=== PATIENT | female | born 1995 | race Caucasian/White ===

== ENCOUNTER 2023-06-27 13:59 | Emergency (ER) | payer BC, SELFPAY ==
[2023-06-27 14:04] VITALS: BP 134/89; PULSE 67; RESP 16; TEMP 36.3; O2SAT 97; BMI 22.6
--- NOTE | 2023-06-27 14:36 | ED_ITS ---
HPI - Back Pain/Injury General Date Seen: 06/27/23 Chief Complaint: Back Injury/Pain Stated Complaint: Back pain, nausea Time Seen by Provider: 06/27/23 14:01 Source: patient Mode of arrival: ambulatory Limitations: no limitations History of Present Illness HPI Narrative: Patient is a 27-year-old female with a history of degenerative disc disease presenting to the emergency department for nausea, vomiting, low back pain. She states she has long history of back pain had MRI done recently that shows degenerative disc disease she had a previous epidural done with no improvement in her symptoms. She is scheduled to see a spine surgeon this upcoming Saturday but states she has been having worsening back pain over the past 2 days and is unable to get the pain under control. She has been taking muscle relaxers without improvement in her symptoms. The states the pain starts in her low back and radiates down her right leg. While she does have back pain it has been getting much worse over these past 2 days. Not remember doing anything to hurt her back recently. 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 Is also having nausea the started the same time that she thinks is related to the back pain. States she feels well hydrated but does admit to a mild headache. Denies vision changes, numbness, chest pain, shortness of breath, abdominal pain, diarrhea, constipation. She does note she had some right leg weakness yesterday that is abnormal for her but that has since resolved. Related Data Previous Rx's Medication Instructions Recorded ketorolac 10 mg tablet 10 mg PO Q8H #15 tabs 06/27/23 ondansetron 4 mg disintegrating 4 mg PO Q6H #20 tabs 06/27/23 tablet oxycodone 5 mg tablet 5 mg PO Q6H PRN pain #12 tabs 06/27/23 Allergies Allergy/AdvReac Type Severity Reaction Status Date / Time No Known Drug Allergies Allergy Verified 06/27/23 14:08 Review of Systems Status of ROS: Reports: 10 or more systems reviewed and unremarkable except as noted in History and below Exam Narrative: Exam Narrative: Const: Well-nourished, Well-developed, in mild distress Eyes: PERRL, no conjunctival injection, and symmetrical lids HENT: Atraumatic external nose and ears. Moist mucous membranes. Neck: Symmetric, trachea midline, No thyromegaly. CVS: RRR, No murmurs or gallops. Peripheral pulses 2+ and equal in all extremities RESP: Unlabored respiratory effort. Clear to auscultation bilaterally. GI: Nontender/Nondistended, No rebound or guarding. MSK:Extremities w/o deformity, Normal Active ROM, right lower back tenderness Skin: Warm, Dry. No rashes or lesions. Neuro: Normal Muscle tone, No focal neurological deficits. Psych: Awake, Alert, & Oriented x3. Appropriate mood and affect. Const: Vital Signs, click to edit/add: Vital Signs - 24 hr 06/27/23 14:04 Temperature 97.4 F L Pulse Rate [Right Pulse Oximeter] 67 Respiratory Rate 16 Blood Pressure [Ri ght Upper Arm] 134/89 Pulse Oximetry 97 Oxygen Delivery Me thod Room Air Course Vital Signs Vital signs: Initial Vital Signs Temperature 97.4 F L 06/27/23 14:04 Temperature Source Temporal Artery Scan 06/27/23 14:04 Pulse Rate 67 06/27/23 14:04 Pulse Rhythm Regular 06/27/23 14:04 Pulse Strength 3+ Normal 06/27/23 14:04 Respiratory Rate 16 06/27/23 14:04 Blood Pressure 134/89 06/27/23 14:04 Blood Pressure Mean 104 06/27/23 14:04 Blood Pressure Position Sitting 06/27/23 14:04 Pulse Oximetry 97 06/27/23 14:04 Oxygen Delivery Method Room Air 06/27/23 14:04 Vital Signs Temperature 97.4 F L 06/27/23 14:04 Pulse Rate 67 06/27/23 14:04 Respiratory Rate 16 06/27/23 14:04 Blood Pressure 134/89 06/27/23 14:04 Pulse Oximetry 97 06/27/23 14:04 Oxygen Delivery Method Room Air 06/27/23 14:04 Temperature 97.4 F L 06/27/23 14:04 Pulse Rate 67 06/27/23 14:04 Respiratory Rate 16 06/27/23 14:04 Blood Pressure 134/89 06/27/23 14:04 Pulse Oximetry 97 06/27/23 14:04 Oxygen Delivery Method Room Air 06/27/23 14:04 Medications Administered Medications: Discontinued Medications Generic Name Dose Route Start Last Admin Trade Name Freq PRN Reason Stop Dose Admin Ketorolac Tromethamine 30 mg 06/27/23 14:26 06/27/23 14:47 Ketorolac 30 Mg/Ml Inj IM 06/27/23 14:27 30 mg ONCE ONE Administration Ondansetron HCl 4 mg 06/27/23 14:26 06/27/23 14:48 Ondansetron Odt 4 Mg Tab PO 06/27/23 14:27 4 mg ONCE ONE Administration MDM - Back Pain/Injury MDM Narrative Medical decision making narrative: Patient is 27-year-old female presenting to the emergency department for low back pain radiating to her right leg. She is not having any saddle anesthesia, fevers, loss of bowel or bladder control. No red flag symptoms for cauda equina. She has known degenerative disc disease. She has been trying to manage pain at home but has not been successful. Do not believe further imaging is necessary as we already know what is happening there has been no recent trauma. We will try Toradol for pain and Zofran for the nausea. The nausea and headache she thinks is both from her back pain. I do not believe head imaging is neces lorenzo at this time. Since she is having nausea we will just check a CBC and CMP to make sure there is nothing else going on. Lab work returned showing no concerning abnormalities. After medication she was feeling little bit less nauseated and the back pain did improve but it is still not noticeably that she states. Her headache has improved. At this time I do believe she is having quite a bit of active suicidal believe she is a reliable patient's I will give her prescription for Toradol, Zofran and give her prescription for oxycodone. I informed her she will not be able to get further oxycodone prescriptions from our emergency department. She states she understands. Will give her dose before she leaves. Lab Data Labs: Lab Results 06/27/23 Range/Units 14:38 WBC 6.54 (4.50-11.00) K/uL RBC 3.96 L (4.00-5.20) m/uL Hgb 12.7 (12.0-16.0) gm/dL Hct 38.7 (33.0-51.0) % MCV 98 (80-100) fL MCH 32 (26-34) pg MCHC 33 (32-36) gm/dL RDW Coeff of Ernie 12.3 (11.5-15.5) % Plt Count 299 (140-440) K/uL Neut % (Auto) 60.2 (42.0-72.0) % Lymph % (Auto) 29.4 (20-44) % Boundary % (Auto) 5.0 (0.0-11.0) % Eos % (Auto) 4.7 (0.0-7.0) % Baso % (Auto) 0.5 (0.0-3.0) % Neut # (Auto) 3.94 (1.7-7.0) K/uL Lymph # (Auto) 1.92 (0.90-2.90) K/uL Boundary # (Auto) 0.30 (0.00-0.90) K/UL Eos # (Auto) 0.31 (0.00-0.50) K/uL Baso # (Auto) 0.03 (0.00-0.30) K/uL Abs Immat Gran (auto) 0.01 (0.00-0.30) K/uL Imm/Tot Granulo (auto) 0.2 % Sodium 139 (135-149) mmol/L Potassium 3.8 (3.6-5.1) mmol/L Chloride 102 (96-114) mmol/L Carbon Dioxide 32 (20-32) mmol/L Anion Gap 5 L (7-15) mEq/L BUN 15 (5-24) mg/dL Creatinine 0.6 (0.5-1.5) mg/dL Estimated Creat Clear 134.18 Estimated GFR 128 ml/min Glucose 98 (60-115) mg/dL Calcium 9.2 (8.4-10.6) mg/dL Total Bilirubin 0.4 (0.1-1.5) mg/dL AST 29 (12-35) U/L ALT 17 (4-35) U/L Alkaline Phosphatase 39 L (40-150) U/L Total Protein 7.2 (6.0-8.3) g/dL Albumin 4.5 (3.3-5.0) g/dL Discharge Plan Discharge Clinical Impression: Lumbar radiculopathy Patient Disposition: Home, Self-Care Condition: Improved Instructions: Acute Low Back Pain (ED) Additional Instructions: Take Toradol as needed for your back pain. Do not take ibuprofen the same time as they are the same class of drugs. Has not working to control the oxycodone. Use Zofran as needed for nausea. You will unlikely be able to get further prescriptions for oxycodone here in the emergency department. Follow-up with your spine surgeon on Saturday as previously planned. Prescriptions: New ondansetron 4 mg tablet,disintegrating 4 mg PO Q6H Qty: 20 0RF oxycodone 5 mg tablet 5 mg PO Q6H PRN (Reason: pain) Qty: 12 0RF ketorolac 10 mg tablet 10 mg PO Q8H Qty: 15 0RF Rx Instructions: maximum total duration of 5 days from all oral, intranasal, or parenteral formulations Follow Up/Referrals: Clara Coto PA-C [Physician Microfilm Machine Operator] - Stand Alone [facility]: [facility] Info Inst[facility]
[2023-06-27 14:45] LABS: Basophils Absolute Auto 0.03 K/uL (0.00-0.30); Basophils Percent Auto 0.5 % (0.0-3.0); Eosinophils Absolute Auto 0.31 K/uL (0.00-0.50); Eosinophils Percent Auto 4.7 % (0.0-7.0); Hematocrit 38.7 % (33.0-51.0); Hemoglobin* 12.7 gm/dL (12.0-16.0); Immature Granulocytes Abs Auto 0.01 K/uL (0.00-0.30); Immature Granulocytes Pct Auto 0.2 %; Lymphocytes Absolute Auto 1.92 K/uL (0.90-2.90); Lymphocytes Percent Auto 29.4 % (20-44); Mean Corpuscular HGB Conc 33 gm/dL (32-36); Mean Corpuscular Hemoglobin 32 pg (26-34); Mean Corpuscular Volume 98 fL (80-100); Neutrophils Absolute Auto 3.94 K/uL (1.7-7.0); Neutrophils Percent Auto 60.2 % (42.0-72.0); Platelet Count* 299 K/uL (140-440); RDW Coefficient of Variation % 12.3 % (11.5-15.5); Red Blood Count 3.96 m/uL (4.00-5.20); White Blood Count* 6.54 K/uL (4.50-11.00)
[2023-06-27] MEDS: KETOROLAC 30 MG/ML inj IM (14:47)
[2023-06-27] MEDS: ONDANSETRON ODT 4 MG TAB PO (14:48)
[2023-06-27 14:51] LABS: Slide Review Reflex No
[2023-06-27 15:09] LABS: Albumin* 4.5 g/dL (3.3-5.0); Chloride* 102 mmol/L (96-114); Potassium* 3.8 mmol/L (3.6-5.1); Sodium* 139 mmol/L (135-149)
[2023-06-27 15:11] LABS: Creatinine* 0.6 mg/dL (0.5-1.5); Est. Creatinine Clearance* 134.18; Estimated Glomerular Filt Rate 128 ml/min
[2023-06-27 15:12] LABS: Alanine Aminotransferase* 17 U/L (4-35); Alkaline Phosphatase* 39 U/L (40-150); Anion Gap 5 mEq/L (7-15); Aspartate Amino Transferase* 29 U/L (12-35); Bilirubin Total* 0.4 mg/dL (0.1-1.5); Blood Urea Nitrogen* 15 mg/dL (5-24); Calcium* 9.2 mg/dL (8.4-10.6); Carbon Dioxide* 32 mmol/L (20-32); Glucose* 98 mg/dL (60-115); Total Protein* 7.2 g/dL (6.0-8.3)
[2023-06-27] MEDS: OXYCODONE 5 MG TABLET PO (16:02)
== END 2023-06-27 16:06 | disposition home or self-care (01) ==
PROVIDERS: Emergency Provider Student in an Organized Health Care Education/Training Program; PCP Family Medicine
DX: M54.16 Radiculopathy, lumbar region (principal)
CPT/HCPCS: 36415; 80053; 85025; 96372; 99283; A9270; J1885

== ENCOUNTER 2024-07-02 19:55 | Emergency (ER) | payer BC, SELFPAY ==
--- OUTSIDE RECORDS SUMMARY | 2024-07-02 19:57 | XMS_ITS ---
Author Organization [facility] Address [address] [place] [address] [address] [place] [address] Care Team Providers Care Irrigation Service Technician Name Role Phone Kennedy KIRAN, Esdras Primary Care Provider Miguel Fortune Unavailable [phone] Medina Tyler Unavailable Unavailable Danielle Us Unavailable [phone] Encounters Encounter Location Date Provider Diagnosis [facility] [address] [place] [address] 07/01/2023 Danielle bradfordTeachcodie Plan Of Treatment No Information Progress Notes * Cecelia MORENOeDOB:1995 (28 yo F)Acc No.[id number]:07/01/2023 Daily Note Patient: Krista PICKETT Provider: Sahil Gaitan, OTR L :1995 A ge:27 Y S ex:Female Date:07/01/2023 Phone: [facility] Pcp:Esdras Benavides MD Subjective: * Chief Complaints: Objective: Therapeutic Interventions: Assessment: Plan: * Treatment: * Billing Information: * Visit Code: * Procedure Codes: * Electronic signature of Job guzman Us , OTR/L on 07/02/2024 at 07:57 PM CDT Sign off status: Pending * Provider: Sahil Gaitan OTR L Date: 07/01/2023 Generated for Elkini ng/Faxing/eTransmitting on: 07/02/2024 07:57 PM CDT
--- OUTSIDE RECORDS SUMMARY | 2024-07-02 19:57 | XMS_ITS ---
Author Organization [facility] Address [address] [place] [address] [address] [place] [address] Care Team Providers Care Funeral Attendant Name Role Phone Kennedy KIRAN, Esdras Primary Care Provider UnavailMiguel Martinez Unavailable [phone] Mercydarcy Medina Unavailable Unavailable Al Rodríguez Unavailable [phone] REASON FOR VISIT pt forgot Encounters Encounter Location Date Provider Diagnosis [facility] [address] [place] [address] 07/03/2023 Al Rodríguez Low back pain, unspecified M54.50 ; Lumbar spondylosis M47.816 and Pain in right hip M25.551 Assessments Encounter Date Diagnosis (ICD Code) Assessment Notes Treatment Notes Treatment Clinical Notes Section Notes 07/03/2023 Low back pain, unspecified (ICD-10 - M54.50) 07/03/2023 Lumbar spondylosis (ICD-10 - M47.816) 07/03/2023 Pain in right hip (ICD-10 - M25.551) Plan Of Treatment No Information Progress Notes * Cecelia MORENOeDOB:1995 (28 yo F)Acc No.[id number]:07/03/2023 Daily Note Patient: Krista PICKETT Provider: Javier Rodríguez DPT Resource:Michael Lorenz :1995 A ge:27 Y S ex:Female Date:07/03/2023 Phone: Address:[facility] [place] Pcp:Esdras Benavides MD Subjective: * Chief Complaints: * HPI: * Therapy Visit Status: Session Data T dede's Session Date 0 06/17/2023 T herapy Episode Status A ctive T herapy Sessions Completed (#) 4 P T Goal Review Date 0 05/31/2023 O T Goal Review Date 0 05/24/2023 T herapy Visit Subjective: Pt reports an increase in LBP, R hip over the last couple weeks, went to [facility] urgent care a week and a half ago because of their LB and hip pain, they received a medrol dose pack and it helped initially but it did wear off. Today is more stable but is going to [facility] tomorrow for further guidance. Objective: * Physical Examination: L umbar Extension Positioning & Goals: Positioning T DC 2 1 C B 1 97 F emur 4 O ther R ound Rollers P rotocol D isc Radiculopathy: Start at 0-36 Goals L ow Goal Female (60% BW) 8 4 H igh Goal Female (80%BW, Max 150) 1 12 L umbar Extension Exercise Performance: Exercise T orque (ft-lbs) 4 5 E xtension ROM (0) 0 F lexion ROM (72) 3 6 R epetitions 2 5 R ating of Perceived Exertion (0-10) 7 L ast Rep Status M et Exertion Goal, Symptom Limited right LBP-somewhat sharp and burning E xercise Plan 2 x week T orso Rotation Positioning & Goals: Positioning G ate 1 .9 F ootboard 2 B ack Pad B ack Pad 1 inch O ther H ands on shoulder restraints P rotocol D isc History: Start 30-30 Goals L ow Goal Female (30%BW) 4 2 H igh Goal Female (35%BW, Max 60) 4 9 T orso Rotation Exercise Performance: Exercise T orque (ft-lbs) 3 0 R otation Left (48) 3 0 R otation Right (48) 3 0 L eft Repetitions 2 0 R ight Repetitions 2 0 R PE (0-10) 7 L ast Rep Status M et Repetition Goal E xercise Plan 2 x week G lute Extension Isotonic Machine: Exercise W eight 2 0 L eft Repetitions 1 5 R ight Repetitions 1 5 I sotonic Exercise Machine Summary: Billing [phone] (Therapeutic Exercise) Direct 1:1 Time= 35 min , CPT Coding Support:. I solated spinal exercise was performed with direct therapy supervision. Therapeutic exercise is dosed objectively using progressive resistance exercise and graded ROM to ensure tolerance. Isolated exercise provides improvement in neuro-muscular coordination of the stabilizing muscles that often become inhibited as a result of injury or disuse. Isolated exercise yields improvements in strength, ROM, and endurance of the spinal musculature necessary in daily functional activities. Therapeutic Interventions: * Therapeutic Interventions: 1 . * Home Exercise List: Stretches & Release Low Back and Hip Stretching HEP : Trunk Rotation (supine twist), Hamstring (supine with ankle pump), Piriformis (modified supine and seated), Hip Flexor (kneeling). QL stetch (kneeling and seated), segmental pelvic tilt roll ups 2 . * Home Exercise List: Strength & Function Hip & Core Strength HEP : prone glute activation (up on toes, engage glute, lift toes and maintain glute contraction) 3 . E ndurance Training Stationary Bike : (Non-billed) Warm up completed prior to therapy session as instructed 4 . M ovement Therapy Summary Movement Therapy Details : Reviewed:-HS,piriformis stretchesIntroduced:-Bridges-Low abs lvl 1-Clamshells Billing : [id number] (Therapeutic Exercise) Direct 1:1 Time= 20 minutes of HEP development 5 . * NA Squat / Reach Active HEP List: : SQUAT: Bridge (Floor) Lunge/Plank Active HEP List: : LUNGE: Clamshell, PLANK: Lower Ab (1) Assessment: * Therapy Assessment and Plan: 1. T herapy Session Assessment Summary : Pt's persistent hip pain is cause for concern for the pt, they do admit the inconsistent attendance is a co-factor in their perseverant issue, however, does feel more imaging may be merited, hence the Ray[facility] visit soon. In the interim of possible findings, we will continue to educate pt on PNE, as well as build upon their HEP as today was a great indication their body is well deconditioned for their age and comparitively to their personal previous level of fitness. 2. * Therapy Session Plan Plan Details : *Patient Valued Goals/Activities: HH chores, yoga, fall asleep faster, *MD/JOSE Follow Up Plan: 6 weeks, *Incoming Referral Tracking - NOLE/RTcore/glut/lb exercisesEDU: 1,2,3,4, Completed Therapy Interventions: sitting/sleep positioning 3. C o-Signing Status SCRUB TECHNICIAN Supervision : SCRUB TECHNICIAN Off-Site Supervision: The therapy session was supervised in accordance to [place] Board of PT statues and rules 148.706 as an off-site supervised session in which a licensed physical therapist was available by telecommunication * Assessment: 1. L ow back pain, unspecified - M54.50 2 . L umbar spondylosis - M47.816? 3. P ain in right hip - M25.551 Plan: * Treatment: * Billing Information: * Visit Code: * Procedure Codes: * Electronic signature of Al Rodríguez DPT on 07/02/2024 at 07:57 PM CDT Sign off status: Pending * Provider: Javier Rodríguez DPT Date: 0 07/03/2023 Generated for Akua maza/Stacia/Maxx on: 0 07/02/2024 07:57 PM CDT History and Physical Notes * HPI (History of Present Illness) Category Sub-Category Detail Notes Category Not es Therapy Visit Subjective Pt reports an increase in LBP, R hip over the last couple weeks, went to [facility] care a week and a half ago because of their LB and hip pain, they received a medrol dose pack and it helped initially but it did wear off. Today is more stable but is going to [facility] tomorrow for further guidance. *Therapy Visit Status Session Data Today's Se ssion Date: 06/17/2023 Therapy Episode Status: Active Therapy Sessions Completed (#): 4 PT Goal Review Date: 05/31/2023 OT Goal Review Date: 05/24/2023 Physical Examination Category Sub-Category Detail Notes Section Note s Lumbar Extension Exercise Performance Exercise Torque (ft-lbs): 45 Isolated spinal exercise was performed with direct therapy supervision. Therapeutic exercise is dosed objectively using progressive resistance exercise and graded ROM to ensure tolerance. Isolated exercise provides improvement in neuro-muscular coordination of the stabilizing muscles that often become inhibited as a result of injury or disuse. Isolated exercise yields improvements in strength, ROM, and endurance of the spinal musculature necessary in daily functional activities. Extension ROM (0): 0 Flexion ROM (72): 36 Repetitions: 25 Rating of Perceived Exertion (0-10): 7 Last Rep Status: Met Exertio n Goal, Symptom Limited right LBP-somewhat sharp and burning Exercise Plan: 2 x week Lumbar Extension Positioning & Goals Positioning TDC: 21 Isolated spinal exercise was performed with direct therapy supervision. Therapeutic exercise is dosed objectively using progressive resistance exercise and graded ROM to ensure tolerance. Isolated exercise provides improvement in neuro-muscular coordination of the stabilizing muscles that often become inhibited as a result of injury or disuse. Isolated exercise yields improvements in strength, ROM, and endurance of the spinal musculature necessary in daily functional activities. CB: 197 Femur: 4 Other: Round Rollers Protocol: Disc Radiculopathy: Start at 0-36 Goals Low Goal Female (60% BW): 84 High Goal Female (80%BW, Max 150): 112 Isotonic Exercise Machine Summary Billing [id number] (Therapeutic Exercise) Direct 1:1 Time= 35 min , CPT Coding Support: Isolated spinal exercise was performed with direct therapy supervision. Therapeutic exercise is dosed objectively using progressive resistance exercise and graded ROM to ensure tolerance. Isolated exercise provides improvement in neuro-muscular coordination of the stabilizing muscles that often become inhibited as a result of injury or disuse. Isolated exercise yields improvements in strength, ROM, and endurance of the spinal musculature necessary in daily functional activities. Torso Rotation Positioning & Goals Positioning Alderson: 1.9 Isolated spinal exercise was performed with direct therapy supervision. Therapeutic exercise is dosed objectively using progressive resistance exercise and graded ROM to ensure tolerance. Isolated exercise provides improvement in neuro-muscular coordination of the stabilizing muscles that often become inhibited as a result of injury or disuse. Isolated exercise yields improvements in strength, ROM, and endurance of the spinal musculature necessary in daily functional activities. Footboard: 2 Back Pad: Back Pad 1 inch Other: Hands on shoulder re straints Protocol: Disc History: Start 30-30 Goals Low Goal Female (30%BW): 42 High Goal Female (35%BW, Max 60): 49 Torso Rotation Exercise Performance Exercise Torque (ft-lbs): 30 Isolated spi nal exercise was performed with direct therapy supervision. Therapeutic exercise is dosed objectively using progressive resistance exercise and graded ROM to ensure tolerance. Isolated exercise provides improvement in neuro-muscular coordination of the stabilizing muscles that often become inhibited as a result of injury or disuse. Isolated exercise yields improvements in strength, ROM, and endurance of the spinal musculature necessary in daily functional activities. Rotation Left (48): 30 Rotation Right (48): 30 Left Repetitions: 20 Right Repetitions: 20 RPE (0-10): 7 Last Rep Status: Met Repetition Goal Exercise Plan: 2 x week Glute Extension Isotonic Machine Exercise Weight: 20 Isolated spinal exercise was performed with direct therapy supervision. Therapeutic exercise is dosed objectively using progressive resistance exercise and graded ROM to ensure tolerance. Isolated exercise provides improvement in neuro-muscular coordination of the stabilizing muscles that often become inhibited as a result of injury or disuse. Isolated exercise yields improvements in strength, ROM, and endurance of the spinal musculature necessary in daily functional activities. Left Repetitions: 15 Right Repetitions: 15
--- OUTSIDE RECORDS SUMMARY | 2024-07-02 19:57 | XMS_ITS | Data Portability ---
Author Organization [place] [facility], autoContract Address [address] [place] [address] Assessment No assessment recorded. Plan of Treatment Reminders Order Date Submit Date Provider Last Modified By Organization Details Last Modified Time Details Appointments None recorded. Lab HIV (1+2) Ab screen, serum 2019 020 [email or web address] [facility], [address] [facility], [address], [place], [address], 0 11:27:05 vdrl/RPR, serum 2019 020 [email or web address] [facility], [address] [facility], [address], [place], [address], 0 11:27:05 hsv (1+2) igg, serum 2019 020 [facility], [address] [facility], [address], [place], [address], 0 16:45:24 TSH, serum or plasma 2019 020 [facility], [address] [facility], [address], [place], [address], 0 16:45:20 lipid panel, serum 2019 020 [facility], [address] [facility], [address], [place], [address], 0 16:45:24 CMP, serum or plasma 2019 CIARAN [facility], [address], [address], [place], [address], 0 16:45:18 urinalysis, complete 2019 [facility], [address], [address], [place], [address], 0 16:45:25 CBC w/ diff 2019 [facility], [address], [address], [place], [address], 0 16:45:22 pap, IG + CT/NG + HPV mRNA E6/E7 2019 [facility], [address], [place], [address], 0 14:25:57 lh + FSH, serum 2019 [facility], [address], [address], [place], [address], 0 16:55:18 estradiol, serum 2019 [facility], [address], [address], [place], [address], 0 16:55:18 testosteron e, free + total, serum 2019 [facility], [address], [address], [place], [address], 0 16:55:17 lipid panel, serum 2018 019 [facility], [address], [address], [place], [address], 9 12:09:18 CBC w/ auto diff 2018 [facility], [address], [address], [place], [address], 9 12:09:19 CMP, serum or plasma 2018 019 [facility] [employer] [facility], [address], [address], [place], [address], 9 12:09:21 TSH, serum or plasma 2018 [facility] [employer] [facility], [address], [address], [place], [address], 9 12:09:20 Referral psychiatris t referral 2018 [email or web address] 6 [facility], [address], [address], [place], [address], 9 12:11:02 Procedures None recorded. Surgeries None recorded. Imaging None recorded. Medication Orders None recorded. Patient TargetsNo targets recorded. Patient Instructions Encounter Date Encounter Id Patient Instructions Last Modified By Organization Details Last Modified Time 11/27/2019 [id number] adult depression screening* asterious Not available 11/27/2019 16:44:49 depression (wome n only) asterious Not available 11/27/2019 16:44:49 td (tetanus, diphtheria) vaccine: what you need to know asterious Not available 11/27/2019 16:45:24 wellness education asterious Not availab le 11/27/2019 16:44:50 advance directives: care instructions asterious Not available 11/27/2019 16:44:49 diet and exercis e for metabolic syndrome: care instructions asterious Not available 11/27/2019 16:44:50 alcohol use disorders identification test* asterious Not available 11/27/2019 16:44:49 advance directiv e education asterious Not available 11/27/2019 16:44:50 advance directives: care instructions asterious Not available 11/27/2019 16:44:48 sunscreen ingredients information asterious Not available 11/27/2019 16:44:50 Reason for Referral Psychiatrist Referral for Ch ronic anxiety Referring Physician: Feli Reveles, Internal Medicine, Encounter Date: 12/31/2018 Results Created Date Observation Date Name Description Value Unit Range Abnormal Flag Note LastModifiedBy Organization Detail LastModifiedTime 11/27/1912/03/2019 pap, IG + CT/NG + HPV mRNA E6/E7 clinical information: normal FIRST PAP Not Available [facility] [address], [place], [address], 12/03/2019 16:34:35 11/27/1912/03/2019 pap, IG + CT/NG + HPV mRNA E6/E7 LMP: normal ABOUT 8 MONTH S Not Available [facility] [address], [place], [address], 12/03/2019 16:34:35 11/27/1912/03/2019 pap, IG + CT/NG + HPV mRNA E6/E7 prev. Pap: normal None given Not Available [facility] [address], [place], [address], 12/03/2019 16:34:35 11/27/1912/03/2019 pap, IG + CT/NG + HPV mRNA E6/E7 prev. BX: NONE GIVEN normal Not Available [facility] [address], [place], [address], 12/03/2019 16:34:35 11/27/1912/03/2019 pap, IG + CT/NG + HPV mRNA E6/E7 source: normal Cervi x, Endoc ervix Not Available [facility] [address], [place], [address], 12/03/2019 16:34:35 11/27/1912/03/2019 pap, IG + CT/NG + HPV mRNA E6/E7 statement of adequacy: normal Satis facto ry for evalu ation . Endoc ervic al/tr ansfo rmati on zone compo nent absen t. Not Available [facility] [address], [place], [address], 12/03/2019 16:34:35 11/27/1912/03/2019 pap, IG + CT/NG + HPV mRNA E6/E7 interpretati on/result: normal Negat macie for intra epith elial lesio n or manan rajani . Not Available [facility] [address], [place], [address], 12/03/2019 16:34:35 11/27/1912/03/2019 pap, IG + CT/NG + HPV mRNA E6/E7 infection: normal Shift in vagin al alem sugge stive of bacte rial vagin osis. Not Available [facility] [address], [place], [address], 12/03/2019 16:34:35 11/27/1912/03/2019 pap, IG + CT/NG + HPV mRNA E6/E7 comment: normal Tip of colle ction devic e in vial Not Available [facility] [address], [place], [address], 12/03/2019 16:34:35 11/27/1912/03/2019 pap, IG + CT/NG + HPV mRNA E6/E7 cytotechnolo gist: normal LLM, CT( CP) CT scree jamie [place]at [place] [place] [address] [place], [place] [address] Not Available [facility] [address], [place], [address], 12/03/2019 16:34:35 11/27/1912/03/2019 pap, IG + CT/NG + HPV mRNA E6/E7 review cytotechnolo gist: normal JLL, CT( CP) CT scree jamie locat [place]: [facility] [place] [id number] [address] [place], [place] [address] Not Available [facility] [address], [place], [address], 12/03/2019 16:34:35 11/27/19 20 12/03/2019 pap, IG + CT/NG + HPV mRNA E6/E7 comment EXPLA OMER Alva NOTE: The Pap is a scree jamie test for cervi aaron cance r. It is not a diagn ostic test and is subje ct to false negat macie and false posit macie resul ts. It is most relia ble when a satis facto ry sampl e, regul yakov obtai giancarlo, is submi tted with relev ant clini aaron findi ngs and histo ry, and when the Pap resul t is evalu ated along with histo eleazar and curre nt clini aaron infor matio n. Not Available [facility] [address], [place], [address], 12/03/2019 16:34:35 11/27/1912/03/2019 pap, IG + CT/NG + HPV mRNA E6/E7 HPV MRNA E6/E7 NOT DETECT ED not detect ed normal This test was perfo rmed using the APTIM A HPV Assay ([employer] . This assay detec ts E6/E7 viral messe nger RNA (mRNA ) from 14 high- risk HPV types (16,1 8,31, 33,35 ,39,4 5,51, 52,56 ,58,5 9,66, 68). The meng tical perfo rmanc e phan cteri stics of this assay have been deter mined by [facility]. The modif icati ons have not been clear ed or appro aissatou by the FDA. This assay has been valid ated pursu ant to the CLIA regul ation s and is used for clini aaron purpo ses. Not Available [facility] [address], [place], [address], 12/03/2019 16:34:35 11/27/19 20 12/03/2019 pap, IG + CT/NG + HPV mRNA E6/E7 chlamydia trachomatis RNA, tma, urogenital NOT DETECT ED not detect ed normal Not Available [facility] [address], [place], [address], 12/03/2019 16:34:35 11/27/19 20 12/03/2019 pap, IG + CT/NG + HPV mRNA E6/E7 neisseria gonorrhoeae RNA, tma, urogenital NOT DETECT ED not detect ed normal Not Available [facility] [address], [place], [address], 12/03/2019 16:34:35 11/27/19 20 12/03/2019 pap, IG + CT/NG + HPV mRNA E6/E7 comment The meng tical perfo rmanc e phan cteri stics of this assay , when used to test SureP ath(T M) speci mens have been deter mined by [facility]. The modif icati ons have not been clear ed or appro aissatou by the FDA. This assay has been valid ated pursu ant to the CLIA regul ation s and is used for clini aaron purpo ses. For addit ional infor judy lewis e refer to https ://ed ucati on.qu estPurdy Ave. com/f aq/FA Q154 (This link is being provi ded for infor amelia gonzalez/ tiana mendosa l purpo ses only. ) Not Available [facility] [address], [place], [address], 12/03/2019 16:34:35 Result Notes None recorded. Problems Name Problem SNOMED Code Status Onset Date Resolution Date Notes Provider Name and Address Organization Details Recorded Time Irregular periods 65578287 Active 020 GIULIA LA APRN null, [place] [facility] 0 16:45:59 Chronic anxiety 831229340 Active 020 Kamila Jansen APRN null, [place] [facility] 0 15:42:36 Problem Notes None recorded. Procedures Surgical History Date Name Laterality Status Provider Name and Address Organization Details Recorded Time 9 Appendectomy completed [place] [facility] 12/31/2018 11:18:01 Imaging Results None recorded. Procedure Notes None recorded. Medical Equipment None Reported. Allergies No known drug allergies Medications Name Sig Start Date Stop Date Status Note LastModified by Organization Details LastModified Time venlafaxine ER 75 mg capsule,ext ended release 24 hr 11/26 completed Not Available Not Available Not Available fluconazole 150 mg tablet 12/31 completed pnt Not Available Not Available Not Available metronidazo le 500 mg tablet Take 1 tablet every 12 hours by oral route as directed for 5 days. 01/05 completed Not Available Not Available Not Available oxycodone-a cetaminophe n 5 mg-325 mg tablet 12/31 completed pnt Not Available Not Available Not Available lorazepam 0.5 mg tablet take 1 tablet every day 01/05 completed Not Available Not Available Not Available risperidone 1 mg tablet Take 0.5 tablets twice a day by oral route. active Not Available Not Available No t Available Microgestin 1/20 (21) 1 mg-20 mcg tablet 12/31 completed pnt Not Available Not Available Not Available Vyvanse 30 mg capsule 12/31 completed pnt Not Available Not Available Not Available Vitals Date Recorded Heart rate Oxygen saturation Oxygen saturation in Arterial blood by Pulse oximetry Respiratory rate Body height Body mass index (BMI) Body weight Systolic blood pressure Diastolic blood pressure Provider Name and Address Organization Details Last Updated DateTime 9 65 /min 97 % 97 % 16 /min 167.64 cm 21.1 kg/m2 66688.6 g 114 mm[Hg] 78 mm[Hg] [place] [facility] 9 11:26:59 Date Recorded Body height Body mass index (BMI) Body weight Heart rate Oxygen saturation Oxygen saturation in Arterial blood by Pulse oximetry Respiratory rate Systolic blood pressure Diastolic blood pressure Provider Name and Address Organization Details Last Updated DateTime 0 167.64 cm 23.1 kg/m2 38991.7 1 g 88 /min 95 % 95 % 16 /min 117 mm[Hg] 79 mm[Hg] Jana [place] [facility] 0 16:14:35 Social History Question Answer Notes LastModified by Organization Details LastModified Time Tobacco Smoking Status Never Smoker No change 11/27/2019 Not Available [facility] 01/05/2020 03:32:18 Accident Related Injury No Information not available 12/31/2018 What Is Your Level Of Alcohol Consumption? Moderate No Change 11/27/19 [id number] Information not available 01/05/2020 Are You Blind Or Do You Have Difficulty Seeing? No [id number] Information not available 01/05/2020 Is Blood Transfusion Acceptable In An Emergency? Yes [id number] Information not available 01/05/2020 Are You Or Have You Been Involved With Bullying? No [id number] Information not available 01/05/2020 What Is Your Level Of Caffeine Consumption? Occasional [id number] Information not available 01/05/2020 Are You Currently Employed? Yes [id number] Information not available 01/05/2020 Are You Deaf Or Do You Have Serious Difficulty Hearing? No [id number] Information not available 01/05/2020 What Type Of Diet Are You Following? REGULAR [id number] Information not available 01/05/2020 Do You Have A Directive To Physicians? No [id number] Information not available 01/05/2020 Which Illicit Or Recreational Drugs Have You Used? Denies [id number] Information not available 01/05/2020 Do You Or Have You Ever Used E-cigarettes Or Vape? 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 No Information not available 12/31/2018 How Many Days In The Past Year Have You Had A Heavy Drinking Consumption (4+ Female, 5+ Male)? 0 Information not available 12/31/2018 Which Of Your Hands Is Dominant? Right [id number] Information not available 01/05/2020 Hard Of Hearing Or Deaf In One Or Both Ears? No Information not available 12/31/2018 Headaches I Have Moderate Headaches Which Come Infrequently Information not available 12/31/2018 High Blood Pressure No Information not available 12/31/2018 High Cholesterol No Information not available 12/31/2018 Single Or Multi-level Home/work? Single Level Home Information not available 12/31/2018 Legally Blind In One Or Both Eyes? No Information not available 12/31/2018 Are You Following A Low Salt Diet? No [id number] Information not available 01/05/2020 Marital Status Single Informatio n not available 12/31/2018 Do You Have A Medical Power Of Director Of Financial Reporting? No [id number] Information not available 01/05/2020 How Many Children Do You Have? 0 [id number] Information not available 01/05/2020 Do You Have An Out Of Hospital DNR? No [id number] Information not available 01/05/2020 Performs Monthly Self-breast Exam? No Information not available 12/31/2018 Do You Use Protection During Sex? No [id number] Information not available 01/05/2020 Difficulty Reading? No Information not available 12/31/2018 What Is Your Relationship Status? Single [id number] Information not available 01/05/2020 Do You Use Your Seat Belt Or Car Seat Routinely? Yes [id number] Information not available 01/05/2020 Seat Belts Used Routinely Yes Information not available 12/31/2018 Are You Sexually Active? Yes [id number] Information not available 01/05/2020 Do You Or Have You Ever Used Smokeless Tobacco? Never Used Smokeless Tobacco [id number] Information not available 01/05/2020 How Much Tobacco Do You Smoke? No [id number] Information not available 01/05/2020 General Stress Level High Information not available 12/31/2018 Do You Use Sunscreen Routinely? No [id number] Information not available 01/05/2020 Sex: Female Functional Status Question Answer Note LastModified by Organizat ion Details LastModified Time Do you have difficulty walking or climbing stairs? No [id number] Information not available 01/05/2020 Difficulty driving at night? No Information no t available 12/31/2018 Do you have difficulty doing errands alone? No [id number] Information not available 01/05/2020 Are you able to care for yourself? Yes [id number] Information not available 01/05/2020 Do you have difficulty dressing or bathing? No [id number] Information not available 01/05/2020 What is your exercise level? Occasional [id number] Information not available 01/05/2020 Mental Status Question Answer Note LastModified by Organization D etails LastModified Time Do you have difficulty concentrating, remembering or making decisions? Yes ADHD [id number] Information no t available 01/05/2020 Family History Nothing Reported. Medical History Condition Response Kidney Stones N Breast Cancer N Rheumatoid arthritis N Erectile Dysfunction N Bone Fracture N Colon cancer N Depression Y COPD N Lung Disease N Sleep Problems N Heart Murnur N Anxiety Disorder Y Muscle, Joint, or Bone Problems N Vision or Eye Problems N Arthritis N Diabetes Mellitus Type 2 N Cancer N Oxygen Dependent N Overactive Bladder N Stroke N Prostate cancer N ADHD Y Hormone Replacement Therpay N Bladder or Kidney Problems N High Cholesterol N Liver Disease N Headaches N Alcohol dependence N Diabetes Mellitus Type 1 N Ear or Hearing Problems N Thyroid Problems N GI Problems N Skin Problems N Anemia N Hepatitis C N Seizures/Epilepsy N AIDS/HIV N Congestive Heart Failure (CHF) N Asthma N Hepatitis B N Reflux/GERD N Heart Disease N Memory Loss N Hypertension N Gynecological History Statement/Question Response Date of Dexa Abnormal Pap N Date of Last Colonoscopy Date of Last Mammogram Flow Moderate Date of LMP 12/21/2018 Sexually Active? Y On BCP's at Conception? N Menses Monthly N HPV Vaccine Y Date of Last Pap Smear Age at Menarche 15 Current Control Method None LMP Approximate Hormone Replacement Therapy N Obstetrics History GPAL:G 0 P 0 0 0 0 Immunizations Vaccine Type Date Status Note Provider Name and Address Organization Details Recorded Time Tdap 0 cancelled patient objection GIULIA LA APR N null, [place] [facility] 11/27/2019 16:45:24 Influenza, high-dose, trivalent, PF 0 cancelled patient objection GIULIA LAAPR N null, [place] [facility] 11/27/2019 19:36:52 Past Encounters Encounter ID Performer Location Encounter Start Date Encounter Closed Date Diagnosis/Indication Diagnosis SNOMED-CT Code Diagnosis ICD10 Code Diagnosis Note [id number] FELI REVELES M.D. MAIN OFFICE [id number] [facility] [address] [place] [address] 12/31/2018 10:48:15 12/31/2018 12:11:02 Chronic anxiety 676416965 F41.9 concerns that she many be bipolar and jose e thi sis the reason Hyperlipid emia screening 122067283 Z13.220 [id number] FELI REVELES M.D. MAIN OFFICE [address] [facility] [address] [place] [address] 11/27/2019 15:43:24 11/27/2019 16:58:51 Adult health examination 714142611 Z00.00 Depression screening 171 087836 Z13.89 goes to [facility] Alcohol co nsumption screening 491735583 Z13.89 3-4 drinks per week Counseling 392860329 Z71 .9 Z71.82 Exercises education, guidance, and counseling 154075668 Z71.89 High risk sexual behavior 933540844 Z72.51 Screening for malignant neoplasm of cervix 482775888 Z12.4 Administra tion of diphtheria, pertussis, and tetanus vaccine 998706966 Z23 Irregular periods 394011 07 N92.6 Immunization refused 275 955558 Z53.20 REFUSE FLU SHOT for the current immunizati on period as specified by the CDC [id number] FELI REVELES M.D. MAIN OFFICE [id number] [facility], [address] [address] 01/06/2020 15:16:42 01/06/2020 15:48:39 Chronic anxiety 487265220 F41.9 Stable. No change. Health Concerns Section Related Observation LastModified by Organization Detai ls LastModified Time None Recorded Concern Status LastModified by Organization Details LastModified Time None Recorded Advance Directives Directive None Recorded Payers Encounter Date Sequence Insurance Name Policy Number Policy Strickland Covered Member ID Strickland Member ID Guarantor Name 12/31/2018 1 [employer] (POS) [id number] Isiah Menaehl [id number] Krista Josh 11/27/2019 1 [employer] (POS) [id number] Isiah Harperl [id number] Krista Josh 01/06/2020 1 [employer] (POS) [id number] Isiah Lara Josh [id number] Krista Josh Notes Date Note Type Note Provider Name and Address Organization Details Recorded Time 9 text/html Anxiety/DepressionReport ed bypatient.Severity:earenstine s suicidal ideations; able to maintain relationships; does not interfere with activities of daily living Associated Symptoms:denies homicidal ideations; no significant weight gain; no significant weight loss; no visual/auditory hallucinations; no delusions; no shortness of breath; mood good; no anxiety; no crying spells; no panic; no isolation; sleeping well; appetite good; energy good; no apathy; maintaining functionalityNotes:it is affecting her relationship wit others , she stopped lorazepam last february she states she has treid many many other mediatons and they do not work Patient is here to establish care Anxiety since high school took lorazepam in the past which helped. Currently not taking anything Asking for a letter for MANDY DOG. Has form in her form (unable to scan) FELI REVELES M.D. [id number] [facility],[address], [address] 01/13/2019 10:39:21 0 text/html Yearly Physical ExaminationReported bypatient.Diet and Nutrition:healthy diet Fracture Risk:no history of fractures; no recent explained fracture; no sudden unexplained fractures; no previous musculoskeletal injuries Physical Activity:exercises on a regular basis; recent increase in physical activity; good physical condition Depression Risk:never feels sad, empty, or tearful; no loss of interest in activities; no significant changes in weight; no sleep disturbances or insomnia; no agitation; no loss of energy; no feelings of worthlessness or guilt; no thoughts of suicide; no history of depression; no history of mood disorders Orientation:no disorientation to time; no disorientation to date; no disorientation to place Concentration and Memory:no decreased concentrating ability; no memory lapses or loss; does not forget words Speech/Motor difficulties:no speech difficulties; no difficulty expressing formulated concepts; no difficulty with fine manipulative tasks; no difficulty writing/copying; no slowed reaction time; does not knock things over when trying to pick them up Hearing:no loss of hearing Vision:no vision problems Activities of Daily Living:able to bathe with limited or no assistance; able to contol urination and bowels; able to dress with limited or no assistance; able to feed self with limited or no assistance; able to get out of chair or bed with limited or no assistance; able to groom with limited or no assistance; able to toilet with limited or no assistance Instrumental Activities of Daily Living:able to do house work with limited or no assistance; able to grocery shop with limited or no assistance; able to manage medications with limited or no assistance; able to manage money with limited or no assistance; able to prepare meals with limited or no assistance; able to use the phone with limited or no assistance Falls Risk Assessment:no frequent falls while walking; no fall in the past year; no fall since last visit; no dizziness/vertigo Home Safety:no unsafe di hazzards; no unsafe stairs; no unsafe gas appliances; working smoke/CO detectors; wears protective head gear for biking/high velocity; use of seatbelts; practicing 'safer sex'; no vision or hearing loss while driving; no fire arms; has hand bars in the bathroom/shower; good lighting in the homeIrregular PeriodsReported bypatient.Associated Symptoms:no fatigue; no irritability; good quality of life She is here for a physical with a pap smear (NEVER HAD ONE) SHE NEEDS TO SEE [employer]BI[employer] INSURANCE CLAIM EXAMINER TO R/O PCOS - SHE HAS NOT HAD A CYCLE IN 8 MONTHS [place]FR[place]A [place] [facility] 11/27/2019 19:37:12 0 text/html Anxiety/DepressionReport ed bypatient.Severity:denie s suicidal ideations; able to maintain relationships; does not interfere with activities of daily living Associated Symptoms:denies homicidal ideations; no significant weight gain; no significant weight loss; no visual/auditory hallucinations; no delusions; no shortness of breath; mood good; no anxiety; no crying spells; no panic; no isolation; sleeping well; appetite good; energy good; no apathy; maintaining functionality Patient is here to review her PAP results. Patient did not get her labs done. ALFREDA [place] - The Listening Doctor 01/06/2020 15:47:35 OBGyn Episode No OBEpisode recorded.
--- OUTSIDE RECORDS SUMMARY | 2024-07-02 19:57 | XMS_ITS | Patient Health Record ---
Author Organization [facility] Address [address] [place] [address] [address] [place] [address] Care Team Providers Care Relay Assembler Name Role Phone Esdras Benavides MD Primary Care Provider UnavailMiguel Martinez Unavailable [phone] Medina Tyler Unavailable Unavailable Al Rodríguez Unavailable [phone] Allergies No Known Allergies Reason For Referral No Information Medications Medication SIG (Take, Route, Frequency, Duration) Notes Start Date End Date Status Meloxicam 15 MG 1 tablet Orally Once a day Active Cyclobenzaprine HCl 10 MG 1 tablet at be dtime as needed Orally Once a day Active Social History Tobacco Use: Social History Observation Description Date Details (start date - stop date) Never Smoker NA - NA Tobacco Use/Smoking: Question Answer Notes Are you a nonsmoker Alcohol Screen Question Answer Notes Did you have a drink contain ing alcohol in the past year? Yes How often did you have a dri nk containing alcohol in the past year? 2 to 4 times a month (2 points) Points 2 Interpretation Negative Problems Problem Type SNOMED Code ICD Code Onset Dates Problem Status W/U Status Risk Notes Problem Right hip pain (906338487868456 ) Pain in right hip (M25.551) Active confirmed Problem Low back pain (610670958) Low back pain, unspecified (M54.50) Active confirmed Problem Lumbar spondylosis (424717367) Lumbar spondylosis (M47.816) Active confirmed Problem Lumbar spinal stenosis (78583892) Lumbar stenosis (M48.061) Active confirmed Plan Of Treatment No Information Insurance Providers Payer Name Payer Address Payer Phone Subscriber Number Group Number Insured Name Patient Relationship to Insured Coverage Start Date Coverage End Date BCBS Out of State [address] [address] [place] [address] [id number] Krista Torres Self - patient is the insured Medical (General) History Medical History History ICD Code Anxiety Arthritis Bipolar Depression Headaches Surgical History Surgery Date(Month/Year) appendectomy 2018
--- OUTSIDE RECORDS SUMMARY | 2024-07-02 19:57 | XMS_ITS | Clinical Summary ---
Author Organization [facility] Address [address] [place] [address] Care Team Providers Care Fence Setter Name Role Phone Mattie Leblacn MD Primary Care Provider Allergies No known active allergies Medications norgestimate-ethi nyl estradioL (ORTHO TRI-CYCLEN) 0.18/0.215/0.25 mg-35 mcg (28) tablet Take 1 Tablet by mouth once daily. 01/04/20 24 Active escitalopram oxalate (LEXAPRO) 20 mg tabletIndications :Generalized anxiety disorder Take 1 Tablet (20 mg) by mouth once daily. 30 Tablet 3 05/01/19 25 Active celecoxib (CELEBREX) 200 mg capsuleIndication s:Annular tear of lumbar disc Take 1 Capsule (200 mg) by mouth two times daily with meals. 60 Capsule 2 05/07/19 25 Active escitalopram oxalate 10 mg tabletIndications :Generalized anxiety disorder with panic attacks Take one tab every morning together with 20 mg dose for total daily dose of 30mg 30 Tablet 3 06/11/19 25 Active clonazePAM 0.5 mg tabletIndications :Panic attacks Take 0.5 Tablets (0.25 mg) by mouth at bedtime. 6 Tablet 06/26/19 25 Active Claravis 40 mg capsule Take 40 mg by mouth two times daily. 12/18/19 24 025 Discontin ued(*Cesilai ent states no longer taking) LORazepam (ATIVAN) 0.5 mg tabIndications:Pa fabienne attack as reaction to stress Take 1 Tablet (0.5 mg) by mouth every 6 hours if needed for Anxiety. 10 Tablet 05/01/19 25 025 Discontin ued(Reord er (E-cancel not sent)) gabapentin (NEURONTIN) 300 mg capsuleIndication s:Lumbar radiculopathy Take 1 Capsule (300 mg) by mouth at bedtime. 30 Capsule 3 05/07/19 25 025 Discontin ued(*Medi cation adjustmen t) gabapentin 100 mg capsuleIndication s:Generalized anxiety disorder with panic attacks one cap at bedtime for 3 days, then one cap two times daily for 3 days, then one cap three times daily thereafter 10 Capsule 06/11/19 25 025 Discontin ued(*Shar rgic/Adve rse Rxn/Side Effects) LORazepam 0.5 mg tabIndications:Pa fabienne attack as reaction to stress Take 1 Tablet (0.5 mg) by mouth every 6 hours if needed for Anxiety. 10 Tablet 06/11/19 25 025 Discontin ued(*Medi cation adjustmen t) Active Problems Problem Noted Date Diagnosed Date Depression, recurrent 09/10/2020 Varicella without mention of complication 2010 Esophageal reflux 10/06/2009 OM, ACUTE SUPPURATIVE NOS 05/29/2000 Encounters Date Type Department Care Team Description 06/26/2024 Telephone [facility] [address] [place] [address] Mattie Leblanc MD Lab (EKG request) 06/25/2024 2:45 PM CDT Telemedicine [facility] [address] [facility] [address] [place] [address] Jeanie Penn MD Telehealth (patient is in [place]); Follow Up 06/23/2024 Telephone [facility] [address] [facility] [place] [address] Zoran Underwood MD Prior Authorization (AMB EPIDURAL STEROID INJECTION - PLEASE COMPLETE/SIGN 06/18/2024 PROGRESS NOTE) 06/19/2024 Telephone [facility] [address] [facility] [place] [address] Zoran Underwood MD requests a call back (reschedule epidural) 06/18/2024 11:20 AM CDT Office Visit [facility] [address] [facility] [place] [address] Zoran Underwood MD Musculoskeletal Problem (Follow up back pain ) 06/18/2024 Travel 06/10/2024 1:45 PM CDT Telemedicine [facility] [address] [address] Jeanie Penn MD Telehealth (patient is in [place]); Follow Up 05/21/2024 10:15 AM CDT Orders Only [facility] [address] [place] [address] Lab 05/21/2024 Travel 05/20/2024 3:45 PM CDT Telemedicine [address] [address] Jeanie Penn MD Telehealth (patient is in [place]); Follow Up 05/18/2024 Telephone [facility] [address] [place] [address] Mattie Leblanc MD Lab (tuberculosis) 05/06/2024 2:40 PM DIRECTOR OF MATERIALS MANAGEMENT Office Visit [facility] [address] [place] [address] Zoran Underwood MD Musculoskeletal Problem (Consult back pain per primary physician Dr. Leblanc ) 05/05/2024 Travel 05/01/2024 1:15 PM DIRECTOR OF MATERIALS MANAGEMENT Telemedicine [facility] [address] [place] [address] Jeanie Penn MD Telehealth; Follow Up; Medication Management 04/30/2024 Travel 04/06/2024 8:15 AM DIRECTOR OF MATERIALS MANAGEMENT Telemedicine [facility] [address] [address] Jeanie Penn MD Telehealth (patient is in [place]); Follow Up from Last 3 Months Immunizations Immunization Administration Dates Next Due DTaP 11/11/2002, 0,05/03/1998,03/08,1997 HIB PRP-T (ActHIB,Hiberix) 11/08/1998,,03/08/1998,12/30 HIB-HepB (Comvax) 11/08/1998 HPV 9 (Gardasil 9) 06/18/2017,12/20/2015 Hepatitis A (Adult) 06/18/2017,12/20/2015 Hepatitis B (Peds) 11/08/1998,03/08/1998, 998 Hib Conjugate, Unspecified 05/03/1998,03/08/1998 ,1997 Inactivated Polio Vaccine 11/11/2002,09/1998,03/08/1998,12/30 Influenza A (H1N1), Inactivated 03/15/2009 Influenza, IIV4 12/20/2015 MENINGOCOCCAL VACCINE 2 VIAL 2MO-55YO (MENVEO) 12/20/2015,11/03/2010 MMR 11/11/2002,11/08/1998 Meningococcal Vaccine (Menactra) 12/20/2015,04/2010 Meningococcal Vaccine (Menomune) 11/03/2010 Tdap 11/03/2010 Varicella Vaccine 05/01/2011,11/08/1998 Family History Medical History Relation Name Comments Good Health Brother Good Health Father Pulmonary embolism Maternal Aunt suddent at 45 Hypertension Maternal Grandfather No Known Problems Maternal Grandmother Good Health Mother No Known Problems Paternal Grandfather Cancer Paternal Grandmother Heart Disease Paternal Grandmother Pulmonary embolism Paternal Grandmother Stroke Paternal Grandmother Relation Name Status Comments Brother Alive Father Alive Maternal Aunt Maternal Grandfather Alive Maternal Grandmother Alive Mother Alive Paternal Grandfather Alive Paternal Grandmother Social History Tobacco Use Types Packs/Day Years Used Date Smoking Tobacco: Never Smokeless Tobacco: Never Tobacco Cessation:Counseling Given: Yes Comments:non smoking home Alcohol Use Standard Drinks/Week Comments Yes 7 (1 standard drink = 0.6 oz pur e alcohol) PHQ-2 Answer Date Recorded PHQ-2 TOTAL SCORE 3 06/25/2024 Social Connections Answer Date Recorded Do you often feel lonely or isolated from those around you? 0 01/15/2024 Financial Resource Strain Answer Date R ecorded Difficulty of Paying Living Expenses 3 01/15/2024 Difficulty of Paying Living Expenses Not on file 01/15/2024 Food Insecurity Answer Date Recorded Do you worry your food will run out before you are able to buy more? 1 01/15/2024 Transportation Needs Answer Date Record ed Does lack of transportation keep you from medica l appointments? 1 01/15/2024 Does lack of transportation keep you from work, meetings or getting things that you need? 1 01/15/2024 Housing Stability Answer Date Recorded What is your housing situation today? 1 01/15/2024 Utilities Answer Date Recorded Do you have trouble paying f or utilities (for example, heat, electricity, water, phone)? 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 Not on file Not on file Obstetrics History Last Filed Vital Signs Vital Sign Reading Time Taken Comments Blood Pressure 106/73 06/18/2024 11:41 AM CDT Pulse 72 06/18/2024 11:41 AM CDT Temperature 36.6 C (97.9 F) 06/18/2024 11:41 AM CDT Respiratory Rate 14 11/12/2022 2:26 PM CDT Oxygen Saturation 95% 06/18/2024 11:41 AM CDT Inhaled Oxygen Concentration - - Weight 66 kg (145 lb 9.6 oz) 02/21/2024 10:34 AM DIRECTOR OF MATERIALS MANAGEMENT Height 168.9 cm (5' 6.5) 09/07/2020 2:45 PM CDT Body Mass Index 23.15 09/07/2020 2:45 PM CDT Plan of Treatment Upcoming Encounters Date Type Department Care Team (Late st Contact Info) Description 07/07/2024 7:40 AM CDT Office Visit [facility] [address] [place] [address] Zoran Underwood MD [address] [place] [address] 07/10/2024 8:15 AM CDT Office Visit [facility] [address] [place] [address] Mattie Leblanc MD [address] [place] [address] 07/10/2024 2:00 PM CDT Office Visit [facility] [address] [place] [address] Iris Martinez, CNM [address] [facility] [address] [place] [address] 08/28/2024 8:40 AM CDT Office Visit [facility] [address] [place] [address] Zroan Underwood MD [address] [place] [address] Health Maintenance Due Date Last Done Comments Hepatitis C screening for age 18-79 11/02/2015 HPV series for age 9-26 (3 - 3-dose series) 09/10/2017 06/18/2017, 12/20/2015 Tetanus booster 11/03/2020 11/03/2010 BMI (ht and wt on same day) for age 18+ 09/07/2021 09/07/2020, 04/18/2020 Pap test for age 21-65 09/08/2023 09/07/2020 COVID-19 vaccine series ( season) 2023 Influenza Vaccine (Season Ended) 2024 12/20/2015 Depression screening for age 12+ 06/26/2025 06/26/2024, 06/25/2024, 06/23/2024, Additional history exists Tdap Completed 11/03/2010 HIV for age 15-65 Completed 09/07/2020 Pneumococcal series for age 6-49 Aged Out No longer eligible based on patient's age to complete this topic Procedures Procedure Name Priority Date/Time Associated Diagnosis Comments QUANTIFERON -TB GOLD PLUS 1 TUBE ([facility]) Routine 05/21/2024 10:15 AM CDT Tuberculosis screening ANTI HIV 1/2 Routine 09/07/2020 3:45 PM CDT Possible exposure to STD CHOCOLATE REFINING ROLLER THIN PREP PAP SCREEN IMAGED Routine 09/07/2020 3:25 PM CDT Pap smear for cervical cancer screening from Last 3 Months or Most Recently Relevant to Health Maintenance Results * QUANTIFERON??-TB GOLD PLUS 1 TUBE ([facility]) (05/21/2024 10:15 AM CDT) QUANTIFERON(R)-T B GOLD PLUS, 1 TUBE NEGATIVE NEGATIVE [employer] Comment: Negative test result. M. tuberculosis complex infection unlikely. NIL 0.01 IU/mL [facility] MITOGEN-NIL 7.15 IU/mL [facility] TB1-NIL 0.01 IU/mL [facility] TB2-NIL 0.01 IU/mL [employer] Comment: The Nil tube value reflects the background interferon gamma immune response of the patient's blood sample. This value has been subtracted from the patient's displayed TB and Mitogen results. Lower than expected results with the Mitogen tube prevent false-negative Quantiferon readings by detecting a patient with a potential immune suppressive condition and/or suboptimal pre-analytical specimen handling. The TB1 Antigen tube is coated with the M. tuberculosis-specific antigens designed to elicit responses from TB antigen primed CD4+ helper T-lymphocytes. The TB2 Antigen tube is coated with the M. tuberculosis-specific antigens designed to elicit responses from TB antigen primed CD4+ helper and CD8+ cytotoxic T-lymphocytes. For additional information, please refer to https://education.[employer]/faq/QRD216 (This link is being provided for informational/ educational purposes only.) Blood BLOOD SPECIMEN / Unknown 05/21/2024 10:15 AM CDT 05/21/2024 10:19 AM CDT us Mattie Leblanc MD SEND OUTS Final Resul t [facility] [employer] [facility] [address] [place] [address], [facility] [address] [place] [address] * ANTI HIV 1/2 (09/07/2020 3:45 PM CDT) HIV-1/HIV-2 ANTIBODY Non-Reacti ve Non-Reacti ve 09/08/2020 5:41 PM CDT [facility] Comment:HIV-1 p24 and HIV-1/ HIV-2 Ab not detected. Blood BLOOD SPECIMEN / Unknown Venipuncture / Unknown 09/07/2020 3:45 PM CDT 09/07/2020 3:48 PM CDT Doc [facility] SEND OUTS Final Resul t [facility] [address] [place] [address], [place] * CHOCOLATE REFINING ROLLER THIN PREP PAP SCREEN IMAGED (09/07/2020 3:25 PM CDT) Case Report Gynecologic Cytology Report Case: [id number] Authorizing Provider: Doc Mitchell PA Collected: 09/07/2020 1525 Ordering Location: [facility] Received: 09/07/2020 1555 Clinic First Screen: Fay Cruz Specimen: CHOCOLATE REFINING ROLLER ThinPrep Vial Screening, Cervical 09/16/2020 6:59 PM CDT [facility] INTERPRETATION/ RESULT NEGATIVE FOR INTRAEPITHELIAL LESION OR MALIGNANCY (NIL) (none) 09/16/2020 6:59 PM CDT [facility] at 1859 CDT ORGANISM(S) Shift in alem suggestive of bacterial vaginosis 09/16/2020 6:59 PM CDT [facility] SPECIMEN ADEQUACY Satisfactory for evaluation No endocervical component seen 09/16/2020 6:59 PM CDT [facility] HPV REQUEST HPV if ASCUS 09/16/2020 6:59 PM CDT [facility] Date of LMP 08/20/20 09/16/2020 6:59 PM CDT [facility] Last Pap Date 201909/16/2020 6:59 PM CDT [facility] Last Pap Result First Pap/Unknown 6:59 PM CDT [facility] Abnormal Pap or Creola Bx in last 5 years No 09/16/2020 6:59 PM CDT [facility] Menstrual Status Irregular Periods 09/16/2020 6:59 PM CDT [facility] Creola Bx Done Today No 09/16/2020 6:59 PM CDT [facility] Additional Information None given 09/16/2020 6:59 PM CDT [facility] Comment: Cytology is screened at [facility] - [address], [place] [address] and [facility] - [address] [facility] [place] [address] and [facility] - [address] [place] [address] Interpreted at [facility] - [address], [place] [address] Automated Review Successful 09/16/2020 6:59 PM CDT [facility] Comment:Specimen processed s uccessfully by automated data operations leader device, ThinPrep Imaging System, [employer] Note The pap test is a screening technique, not a diagnostic procedure. It is used primarily to screen for squamous cancers and precursor lesions. Published studies have shown that it is subject to both false negative and false positive results. The pap test should not be used as the sole means to diagnose or exclude pre-malignant and malignant lesions. 09/16/2020 6:59 PM CDT [facility] Other (Cervical) Non-Blood / Unknown 09/07/2020 3:25 PM CDT 09/07/2020 3:55 PM CDT us Doc [facility] PATHOLOGY/CYTOLOGY Final Re sult [facility] [address] [place] [address], [place] from Last 3 Months or Most Recently Relevant to Health Maintenance Insurance [employer] [facility] Care Teams Fence Setter Relationship Specialty Start Date End Date Mattie [place]blanc [place] [address] PCP - General Family Practice 02/21/24
[2024-07-02 19:58] VITALS: BP 138/95; PULSE 61; RESP 16; TEMP 36.6; O2SAT 100; BMI 22.6
--- OUTSIDE RECORDS SUMMARY | 2024-07-02 19:58 | XMS_ITS ---
Author Organization [facility] Address [address] [place] [address] [address] [place] [address] Care Team Providers Care Data Analysis Assistant Name Role Phone Kennedy KIRAN, Esdras Primary Care Provider Miguel Fortune Unavailable [phone] Medina Tyler Unavailable Unavailable Al Rodríguez Unavailable [phone] Encounters Encounter Location Date Provider Diagnosis [facility] [address] [place] [address] 06/26/2023 Al Rodríguez Plan Of Treatment No Information Progress Notes * Cecelia MORENOeDOB:1995 (28 yo F)Acc No.[id number]:06/26/2023 Daily Note Patient: Krista PICKETT Provider: Javier Rodríguez DPT Resource:Michael Lorenz :1995 A ge:27 Y S ex:Female Date:06/26/2023 Phone: [facility] Pcp:Esdras Benavides MD Subjective: * Chief Complaints: Objective: Therapeutic Interventions: Assessment: Plan: * Treatment: * Billing Information: * Visit Code: * Procedure Codes: * Electronic signature of Al Rodríguez DPT on 07/02/2024 at 07:57 PM CDT Sign off status: Pending * Provider: Javier Rodríguez DPT Date: 06/26/2023 Generated for Akua maza/Stacia/Maxx on: 0 07/02/2024 07:57 PM CDT
--- OUTSIDE RECORDS SUMMARY | 2024-07-02 19:58 | XMS_ITS | Clinical Summary ---
Author Organization [facility] Address [address] [place] [address]. [place] [address] Care Team Providers Care Mirror Specialist Name Role Phone Daisha Oglesby PA-C Primary Care Provider Allergies No known active allergies Medications norethindrone-eth inyl estradiol (MICROGESTIN 03/23) 1-20 MG-MCG per tabletIndications :Irregular menses,Unspecifie d contraceptive management Take 1 tablet by mouth daily 3 Package 3 4 Active Cyanocobalamin (VITAMIN B 12 PO) Ac tive magnesium chloride 535 (64 MG) MG TBCR CR tablet Take 535 mg by mouth daily Active metoclopramide (REGLAN) 10 MG tablet Take 1 tablet (10 mg) by mouth 4 times daily as needed 10 tablet 7 Active hydrOXYzine (ATARAX) 25 MG tabletIndications :Anxiety Take 1-2 tablets (25-50 mg) by mouth every 4 hours as needed for anxiety 60 tablet 1 7 Active lamoTRIgine (LAMICTAL) 25 MG tabletIndications :Suicidal ideation,Moderate episode of recurrent major depressive disorder (H) Take 1 tablet (25 mg) by mouth daily 30 tablet 1 7 Active sertraline (ZOLOFT) 50 MG tabletIndications :Moderate episode of recurrent major depressive disorder (H) Take 1 tablet (50 mg) by mouth daily 30 tablet 1 7 Active traZODone (DESYREL) 50 MG tabletIndications :Other insomnia Take 1 tablet (50 mg) by mouth nightly as needed for sleep 30 tablet 1 10/27/201 7 Active cyclobenzaprine (FLEXERIL) 10 MG tablet Take 1 tablet (10 mg) by mouth 3 times daily as needed for muscle spasms or other (back pain) 10 tablet 4 Active Additional Information Patient not taking.Reported on 03/11/2024 buPROPion (WELLBUTRIN XL) 150 MG 24 hr tablet PLEASE SEE ATTACHED FOR DETAILED DIRECTIONS 4 Active CLARAVIS 40 MG capsule Take 40 mg by mouth 2 times daily. 4 Active norgestim-eth estrad triphasic (ORTHO TRI-CYCLEN) 0.18/0.215/0.25 MG-35 MCG tablet Take 1 tablet by mouth daily at 2 pm. 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 Immunizations Name Administration Dates Next Due DTAP (<7y) 11/11/2002, 0,05/03/1998,03/08,1997 HIB (PRP-T) 11/08/1998, 9,03/08/1998,12/30 HepB 11/08/1998,03/08/1998,1997 MMR (MMRII) 11/11/2002,11/08/1998 Meningococcal (Menomune ) 11/03/2010 Poliovirus, inactivated (IPV) 11/11/2002 ,11/08/1998,03/08/1998,12/30 TDAP (Adacel,Boostrix) 11/03/2010 Varicella (Varivax) 05/01/2011,11/08/1998 Varicella Pt Report Hx of Varicella/Chicken Pox 12/01/2007 Family History Medical History Relation Comments Family History Negative Father Breast Cancer Maternal Aunt Family History Negative Mother Relation Status Comments Father Alive Maternal Aunt Mother Alive Social History Tobacco Use Types Packs/Day Years Used Date Smoking Tobacco: Never Smokeless Tobacco: Never Alcohol Use Standard Drinks/Week Comments Yes 0 (1 standard drink = 0.6 oz pur e alcohol) occas Adolescent Education Answer Date Record ed Getting School Help Needed Not on file 11/25 Comments No Sex and Gender Information Value Date Recorded Sex Assigned at Not on file Legal Sex Female 3:40 AM WEBSITE PROGRAMMER Gender Identity Not on file Sexual Orientation Not on file Last Filed Vital Signs Vital Sign Reading Time Taken Comments Blood Pressure 108/76 03/11/2024 10:10 AM WEBSITE PROGRAMMER Pulse 60 03/11/2024 10:10 AM WEBSITE PROGRAMMER Temperature 36.7 C (98.1 F) 03/11/2024 10:10 AM WEBSITE PROGRAMMER Respiratory Rate 16 03/11/2024 10:10 AM WEBSITE PROGRAMMER Oxygen Saturation 97% 03/11/2024 10:10 AM WEBSITE PROGRAMMER Inhaled Oxygen Concentration - - Weight 64.4 kg (142 lb) 03/11/2024 10:10 AM WEBSITE PROGRAMMER Height 167.6 cm (5' 6) 03/13/2023 12:59 PM WEBSITE PROGRAMMER Body Mass Index 22.92 03/13/2023 12:59 PM WEBSITE PROGRAMMER Plan of Treatment Health Maintenance Due Date Last Done Comments ADVANCE CARE PLANNING 1995 ANNUAL REVIEW OF HM ORDERS 1995 HEPATITIS C SCREENING 11/02/2015 HPV IMMUNIZATION (3 - 3-dose series) 09/10/2017 06/18/2017, 12/20/2015 YEARLY PREVENTIVE VISIT 09/07/2021 09/08/19 21, 11/27/2019, 06/18/2017, Additional history exists PAP 09/08/2023 09/07/2020 COVID-19 Vaccine ( season) 2023 PHQ-2 (once per calendar year) 2024 DTAP/TDAP/TD IMMUNIZATION (9 - Td or Tdap) 04/24/2033 04/24/2023, 11/19/2022, 11/03/2010, Additional history exists ZOSTER IMMUNIZATION (1 of 2) 11/02/2047 HEPATITIS B IMMUNIZATION Completed 999, 11/08/1998, 11/08/1998, Additional history exists MENINGITIS IMMUNIZATION Completed 12/20/19 16, 12/20/2015, 11/03/2010 HIV SCREENING Completed 09/07/2020, 06/18/2017 INFLUENZA VACCINE Completed 12/17/2023, , 12/20/2015, Additional history exists Pneumococcal Vaccine: Pediatrics (0 to 5 Years) and At-Risk Patients (6 to 49 Years) Aged Out No longer eligible based on patient's age to complete this topic [place] Advance [place]ives For more information, please contact: [phone] * Full Code (Latest Code Status on File) Date Activated Date Inactivated Comments 12/27/2016 12:58 AM 12/30/2016 12:06 PM Care Teams Mirror Specialist Relationship Specialty Start Date End Date Daisha Oglesby PA-C [address] [place] [address] PCP - General Internal Medicine 03/18/23
--- OUTSIDE RECORDS SUMMARY | 2024-07-02 19:58 | XMS_ITS | Encounter Summary ---
Author Organization [facility] Address [address] [place] [address]. [place] [address] Care Team Providers Care R Developer Name Role Phone Daisha Oglesby RN Primary Care Provider Unavailab Daisha Ortega PAJesúsC Primary Care Provider [phone] Reason for Visit * Reason Onset Date Comments MH/CD Inpatient 12/26/2016 Encounter Details Date Type Department Care Team ([facility] Contact Info) Description 12/26/2016 Telephone [facility] Behavioral Health Intake [address] [place] [address] [phone] Generic, Behavioral Intake, MD MH/CD Inpatient Social History Tobacco Use Types Packs/Day Years Used Date Smoking Tobacco: Never Smokeless Tobacco: Never Alcohol Use Standard Drinks/Week Comments Yes 0 (1 standard drink = 0.6 oz pur e alcohol) occas Adolescent Education Answer Date Record ed Getting School Help Needed Not on file 11/25 Comments Unknown Sex and Gender Information Value Date Recorded Sex Assigned at Not on file 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 Unable to assess 06/20/2020 3:41 PM CDT documented as of this encounter Miscellaneous Notes * Telephone Encounter - Drew Wilde - 12/26/2016 9:15 PM CDT S: [facility] ED called to place a 21 y/o female for inpatient mental health treatment. B: Pt was BIB father to the [facility] ED due to a suicide attempt. Pt attempted to OD on Tylenol at 1330 today. Pt ingested 24 500 mg tablets of Tylenol. Pt vomited once after taking the tablets. Pt continues to endorse SI. Pt was placed on a 72 hour hold at 1424 today. Pt reports she has been suffering from depression but has not taken her Cymbalta in several days. Pt has been medically stabilized.Utox positive for cannabinoids only. A: Refer to inpatient unit for mental health treatment. R: Admit to 4A under Dr. Haley. Approved by Dr. Umanzor. documented in this encounter Plan of Treatment Not on file documented as of this encounter Visit Diagnoses Not on filedocumented in this encounter Additional Health Concerns Infection Onset Date Last Indicated Resolved Time Rule Out COVID-19 06/20/2020 06/20/2020 06/20/2020 7:15 PM CDT documented as of this encounter Care Teams R Developer Relationship Specialty Start Date End Date Daisha Oglesby RN PCP - General 09/06/16 03/17/23 Daisha Oglesby PA-C [address] [place] [address] PCP - General Internal Medicine 03/18/23 documented as of this encounter
--- OUTSIDE RECORDS SUMMARY | 2024-07-02 19:58 | XMS_ITS | Clinical Summary ---
Author Organization [facility] Address [address], [place] [address] Care Team Providers Care Personal Lines Advisor Name Role Phone Daisha Oglesby PA-C Primary Care Provider [phone] Source Comments You are receiving this document as you are listed as the primary care provider,follow-up provider, or the patient has been referred to you for consultation.This is in compliance with the Medicare and[facility] EHR Incentive Program,which states Providers who transition their patient to another setting of careor provider of care or refers their patient to another provider of care shouldprovide summary care record for each transition of care or referral. [employer] Allergies No known active allergies Medications * This document contains information received from the source organization and may not represent a complete record from that organization. citalopram (CELEXA) 10 MG tabletIndication s:OLIVERIO (generalized anxiety disorder) (HRC),Panic disorder (HRC),Episode of recurrent major depressive disorder, unspecified depression episode severity (HRC),Social anxiety disorder (HRC) Take 1 Tablet (10 mg) by mouth daily for 7 days, THEN 2 Tablets (20 mg) daily for 23 days. 53 Tablet 1 07/24/2022 Active propranolol (INDERAL) 10 MG tabletIndication s:OLIVERIO (generalized anxiety disorder) (HRC),Panic disorder (HRC),Social anxiety disorder (HRC) Take 1 Tablet (10 mg) by mouth two times daily as needed (anxiety) for 7 days, THEN 2 Tablets (20 mg) two times daily as needed (anxiety) for up to 23 days. 120 Tablet 1 07/24/2022 Active Active Problems Problem Noted Date Diagnosed Date Panic disorder 02/26/2019 Moderate episode of recurrent major depressive d isorder 01/11/2017 ADHD (attention deficit hype ractivity disorder), combined type 05/19/2015 OLIVERIO (generalized anxiety disorder) 01/17/2015 Eating disorder 05/12/2014 Overview (10/24/2016): Eating disorder, unspecified Irregular menstruation 05/12/2014 Resolved Problems Problem Noted Date Diagnosed Date Resolved Date Health long-term, active care coordination 12/30/2014 10/10/2018 Overview (10/07/2015): Group Exercise Instructor: Ayala Bravo RN Group Exercise Instructor, [facility]/Peds - [phone] Care coordination focus: Community Resources/Mental Health Resources Living situation: Lives with parents Important notes: See care plan under Chart Review > Misc Reports > AMB [facility] CARE PLAN REPORT OCP (oral contraceptive pills) initiation 05/12/2014 12/20/2015 Depression, major, recurrent, mild 05/12/2014 06/18/2017 Screen for STD (sexually transmitted disease) 05/13/19 15 06/18/2017 Immunizations Immunization Administration Dates Next Due 9vHPV (Gardasil 9) 06/18/2017,12/20/2015 DTaP 11/11/2002, 0,05/03/1998,1998,1997 HepA Adult (19+ yrs) 06/18/2017,12/20/2015 HepB Ped/Adol (0-18 yrs) 11/08/1998,03/08/1998,1 Hib (ActHIB) 11/08/1998, 9,03/08/1998,1997 IPV (Polio) 11/11/2002, 9,03/08/1998,1997 Influenza IIV4 (Quadrivalent ) 0.5mL (54702) 12/20/2015 MCV4 (Menactra) 11/03/2010 MCV4 Menveo 2m.+ (two vial) 12/20/2015 MMR 11/11/2002,11/08/1998 TDAP (ADACEL) 11/03/2010 Varicella 05/01/2011,11/08/1998 Family History Medical History Relation Name Comments No Known Problems Father Anxiety Mother Migraines Mother OCD Mother No Known Problems Brother High Cholesterol Maternal Grandfather Hypertension Maternal Grandmother No Known Problems Paternal Grandfather Diabetes Paternal Grandmother Heart Disease Paternal Grandmother Stroke Paternal Grandmother Relation Name Status Comments Father Alive Mother Alive Brother Alive Maternal Grandfather Alive Maternal Grandmother Alive Paternal Grandfather Alive Paternal Grandmother Alive Social History Tobacco Use Types Packs/Day Years Used Date Smoking Tobacco: Never Smokeless Tobacco: Never Alcohol Use Standard Drinks/Week Comments Yes 0 (1 standard drink = 0.6 oz pur e alcohol) rarely PHQ-2 Answer Date Recorded PHQ-2 Score 2 12/07/2021 Comments Unknown Sex and Gender Information Value Date Recorded Sex Assigned at Not on file Legal Sex Female 7:41 AM CDT Gender Identity Not on file Sexual Orientation Not on file Occupation Industry Job Start Date Job End Date Student Not on file Not on file Not on file Last Filed Vital Signs Vital Sign Reading Time Taken Comments Blood Pressure 109/77 02/26/2019 3:28 PM LODGING FACILITIES ATTENDANT Pulse 77 02/26/2019 3:28 PM LODGING FACILITIES ATTENDANT Temperature 36.3 C (97.4 F) 05/30/2016 3:13 PM CDT Respiratory Rate 16 12/20/2015 10:21 AM CDT Oxygen Saturation - - Inhaled Oxygen Concentration - - Weight 60 kg (132 lb 3.2 oz) 02/26/2019 3:28 PM LODGING FACILITIES ATTENDANT Height 168.9 cm (5' 6.5) 01/27/2019 10:59 AM CS T Body Mass Index 21.02 01/27/2019 10:59 AM LODGING FACILITIES ATTENDANT Plan of Treatment Health Maintenance Due Date Last Done Comments Cervical Cancer Screening Due 1997 Hep C Screening (Preventive Services) 1997 HPV Vaccine (3 - 3-dose series) 09/10/2017 06/18/2017, 12/20/2015 Adult Preventive Visit 06/19/2019 06/18/2017, 2015 DTaP/Tdap/Td Vaccine (7 - Tdap) 11/03/2020 11/03/2010, 11/11/2002, 05/03/1999, Additional history exists COVID-19 Vaccine (1 - 2024-25 season) 2023 Influenza Vaccine (#1) 2023 12/20/2015 Zoster/Shingles Vaccine (1 of 2) 11/02/2047 HepB Vaccine Completed 11/08/1998, 07/1998, 1997 Hib Vaccine Completed 11/08/1998, 09/1998, 05/03/1998, Additional history exists IPV (Polio) Vaccine Completed 11/11/2002, 11/08/1998, 03/08/1998, Additional history exists Varicella Vaccine Completed 05/01/2011, 11/08/1998 MCV4 Vaccine Completed 12/20/2015, 04/2010, 11/03/2010 HepA Vaccine Completed 06/18/2017, 12/20/2015 HIV Screening (Preventive Services) Completed 09/07/2020, 06/18/2017 Chlamydia Discontinued 08/17/2021, 08/02, 09/07/2020, Additional history exists Meningococcal B Vaccine Aged Out No l onger eligible based on patient's age to complete this topic Pneumococcal Vaccine Aged Out No long er eligible based on patient's age to complete this topic Procedures Procedure Name Priority Date/Time Associated Diagnosis Comments HIV 1/2 AG/AB 4TH GEN Routine 06/18/2017 11:59 AM CDT Screen for STD (sexually transmitted disease) CHLAMYDIA & GC, URINE (14 YEARS AND OLDER) Routine 06/18/2017 11:52 AM CDT Screen for STD (sexually transmitted disease) from Last 3 Months or Most Recently Relevant to Health Maintenance Results * HIV 1/2 Ag/Ab 4th Generation (06/18/2017 11:59 AM CDT) HIV-1 p24 Ag and HIV-1/HIV-2 Ab Nonreactive Nonreactive PN SOFT 06/18/2017 11:5 9 AM CDT 06/18/2017 3:27 PM CDT Narrative PN SOFT - 06/18/2017 5:34 [place] [address] CLIA number [id number] Daisha CASTROC LAB_1 Final Result Performing Organization Address [facility] de Phone Number PN SOFT [address] [place] [address] * Chlamydia and GC, Urine STD (06/18/2017 11:52 AM CDT) Urine Chlamydia STD Negative Negative PN SOFT Comment: Test Performed by Pie Cutter Mediated Amplification Results obtained from this source are not FDA approved. CLIA Number [id number] Urine N. gonnorrhoeae STD Negative Negative PN SOFT Comment: Test Performed by Pie Cutter Mediated Amplification Results obtained from this source are not FDA approved. Performed at [facility], [address] [place] [address] CLIA Number [id number] 06/18/2017 11:5 2 AM CDT 06/18/2017 3:20 PM CDT Daisha CASTROC LAB_1 Final Result Performing Organization Address [facility] de Phone Number PN SOFT [address] [place] [address] from Last 3 Months or Most Recently Relevant to Health Maintenance Insurance [facility] BCBS OUT OF STATE CARE [facility] Care Teams Personal Lines Advisor Relationship Specialty Start Date End Date Daisha Oglesby PAJesúsC [address] [place] [address] PCP - General 01/24/15
--- OUTSIDE RECORDS SUMMARY | 2024-07-02 19:58 | XMS_ITS | Encounter Summary ---
Author Organization [facility] Address [address] [place] [address]. 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 Unable to assess 06/20/2020 3:41 PM CDT documented as of this encounter Plan of Treatment Not on file documented as of this encounter Visit Diagnoses Not on filedocumented in this encounter Additional Health Concerns Infection Onset Date Last Indicated Resolved Time Rule Out COVID-19 06/20/2020 06/20/2020 06/20/2020 7:15 PM CDT documented as of this encounter Care Teams Automotive Tire Technician Relationship Specialty Start Date End Date Daisha Oglesby RN PCP - General 09/06/16 03/17/23 Daisha Oglesby PA-C [address] [place] [address] PCP - General Internal Medicine 03/18/23 documented as of this encounter
--- OUTSIDE RECORDS SUMMARY | 2024-07-02 19:58 | XMS_ITS | Encounter Summary ---
Author Organization [facility] Address [address] [place] [address]. 

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
[2024-07-02] MEDS: METHYLPREDNISOLONE SOD SUCC 62.5 MG/ML (125) 125 MG IVP (20:31)
[2024-07-02] MEDS: HYDROmorphone 0.5 mg/0.5 ml inj IVP (20:31)
[2024-07-02 20:38] VITALS: PULSE 72; RESP 18; O2SAT 97
--- OUTSIDE RECORDS SUMMARY | 2024-07-02 20:43 | XMS_ITS | Encounter Summary ---
Author Organization [facility] Address [address] [place] [address]. [place] [address] Care Team Providers Care Healthcare Specialist Name Role Phone Daisha Oglesby RN Primary Care Provider 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
--- OUTSIDE RECORDS SUMMARY | 2024-07-02 20:43 | XMS_ITS | Clinical Summary ---
Author Organization [facility] Address [address] [address] Care Team Providers Care Head Trimmer Name Role Phone Daisha Oglesby PA-C Primary Care Provider [phone] Source Comments You are receiving this document as you are listed as the primary care provider,follow-up provider, or the patient has been referred to you for consultation.This is in compliance with the Medicare and[facility] EHR Incentive Program,which states Providers who transition their patient to another setting of careor provider of care or refers their patient to another provider of care shouldprovide summary care record for each transition of care or referral. [employer] Allergies No known active allergies Medications * [...] Noted Date Diagnosed Date Resolved Date Health residential, active care coordination 12/30/2014 10/10/2018 Overview (10/07/2015): Cleaners: Ayala Bravo RN Cleaners, [facility]/Peds - [phone] Care coordination focus: Community Resources/Mental Health Resources [...] 11/11/2002, 9,03/08/1998,1997 Influenza IIV4 (Quadrivalent ) 0.5mL (10316) 12/20/2015 MCV4 (Menactra) 11/03/2010 MCV4 Menveo 2m.+ [...] Comments Blood Pressure 109/77 02/26/2019 3:28 PM SOCIAL MEDIA MARKETER Pulse 77 02/26/2019 3:28 PM SOCIAL MEDIA MARKETER Temperature 36.3 C (97.4 F) 05/30/2016 3:13 PM CDT Respiratory Rate 16 12/20/2015 10:21 AM CDT Oxygen Saturation - - Inhaled Oxygen Concentration - - Weight 60 kg (132 lb 3.2 oz) 02/26/2019 3:28 PM SOCIAL MEDIA MARKETER Height 168.9 cm (5' 6.5) 01/27/2019 10:59 AM CS T Body Mass Index 21.02 01/27/2019 10:59 AM SOCIAL MEDIA MARKETER Plan of Treatment Health Maintenance Due Date [...] - 06/18/2017 5:34 PM [place] [address] CLIA number [id number] Daisha CASTROC LAB_1 Final Result Performing Organization Address [facility] de Phone Number PN SOFT [address] [place] [address] * Chlamydia and GC, Urine STD (06/18/2017 11:52 AM CDT) Urine Chlamydia STD Negative Negative PN SOFT Comment: Test Performed by Tool Specialist Mediated Amplification Results obtained from this source are not FDA approved. CLIA Number [id number] Urine N. gonnorrhoeae STD Negative Negative PN SOFT Comment: Test Performed by Tool Specialist Mediated Amplification Results obtained from this source are not FDA approved. Performed at [facility], [address] [place] [address] CLIA Number [id number] 06/18/2017 11:5 2 AM CDT 06/18/2017 3:20 PM CDT Daisha CASTROC LAB_1 Final Result Performing Organization Address [facility] de Phone Number PN SOFT [address] [place] [address] from Last 3 Months or Most Recently Relevant to Health Maintenance Insurance [facility] BCBS OUT OF STATE CARE [facility] Care Teams Head Trimmer Relationship Specialty Start Date End Date Daisha Oglesby PAJesúsC [address] [place] [address] PCP - General 01/24/15
--- OUTSIDE RECORDS SUMMARY | 2024-07-02 20:43 | XMS_ITS | Clinical Summary ---
Author Organization [facility] Address [address] [place] [address]. [place] [address] Care Team Providers Care Powerhouse Electrician Apprentice Name Role Phone Daisha Oglesby PA-C Primary Care Provider [phone] Allergies No known active allergies Medications norethindrone-eth [...] on file Legal Sex Female 3:40 AM BUSINESS SOLUTIONS CONSULTANT Gender Identity Not on file Sexual Orientation Not on file Last Filed Vital Signs Vital Sign Reading Time Taken Comments Blood Pressure 108/76 03/11/2024 10:10 AM BUSINESS SOLUTIONS CONSULTANT Pulse 60 03/11/2024 10:10 AM BUSINESS SOLUTIONS CONSULTANT Temperature 36.7 C (98.1 F) 03/11/2024 10:10 AM BUSINESS SOLUTIONS CONSULTANT Respiratory Rate 16 03/11/2024 10:10 AM BUSINESS SOLUTIONS CONSULTANT Oxygen Saturation 97% 03/11/2024 10:10 AM BUSINESS SOLUTIONS CONSULTANT Inhaled Oxygen Concentration - - Weight 64.4 kg (142 lb) 03/11/2024 10:10 AM BUSINESS SOLUTIONS CONSULTANT Height 167.6 cm (5' 6) 03/13/2023 12:59 PM BUSINESS SOLUTIONS CONSULTANT Body Mass Index 22.92 03/13/2023 12:59 PM BUSINESS SOLUTIONS CONSULTANT Plan of Treatment Health Maintenance Due Date [...] Advance Directives For more information, please contact: [phone] * Full Code (Latest Code Status on File) Date Activated Date Inactivated Comments 12/27/2016 12:58 AM 12/30/2016 12:06 PM Care Teams Powerhouse Electrician Apprentice Relationship Specialty Start Date End Date Daisha Oglesby PA-C [id number] [place] [address] PCP - General Internal Medicine 03/18/23
--- OUTSIDE RECORDS SUMMARY | 2024-07-02 20:43 | XMS_ITS | Encounter Summary ---
Author Organization [facility] Address [address] [place] [address]. 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 Unable to assess 06/20/2020 3:41 PM CDT documented as of this encounter Miscellaneous Notes * Telephone Encounter - Drew Wilde - 12/26/2016 9:15 PM CDT S: [facility] ED called to place a 21 y/o female for inpatient mental health treatment. B: Pt was BIB father to the [facility] ED due to a suicide attempt. Pt [...] documented as of this encounter Care Teams Toe Stapler Relationship Specialty Start Date End Date Daisha Oglesby RN PCP - General 09/06/16 03/17/23 Daisha Oglesby PA-C [id number] [place] [address] PCP - General Internal Medicine 03/18/23 documented as of this encounter
--- OUTSIDE RECORDS SUMMARY | 2024-07-02 20:43 | XMS_ITS | Clinical Summary ---
Author Organization [email or web address] Address [address] [place] [address] Care Team Providers Care Lab Assistant Name Role Phone Mattie Leblanc MD Primary Care Provider Allergies No known [...] two times daily. 12/18/19 24 025 Discontin ued(*Cesilia ent states no longer taking) LORazepam (ATIVAN) 0.5 mg tabIndications:Pa fabienen attack as reaction to stress Take 1 [...] Type Department Care Team Description 06/26/2024 Telephone [facility] [address] [place] [address] Mattie Leblanc MD Lab (EKG request) 06/25/2024 2:45 PM CDT Telemedicine [facility] [address] [facility] [address] [place] [address] Jeanie Penn MD Telehealth (patient is in [place]); Follow Up 06/23/2024 Telephone [facility] [address] [facility] [place] [address] Zoran Underwood MD Prior Authorization (AMB EPIDURAL STEROID INJECTION - PLEASE COMPLETE/SIGN 06/18/2024 PROGRESS NOTE) 06/19/2024 Telephone [facility] [address] [facility] [place] [address] Zoran Underwood MD requests a call back (reschedule epidural) 06/18/2024 11:20 AM CDT Office Visit [facility] [address] [place] [address] Zoran Underwood MD Musculoskeletal Problem (Follow up back pain ) 06/18/2024 Travel 06/10/2024 1:45 PM CDT Telemedicine [facility] [address] [address] Jeanie Penn MD Telehealth (patient is in [place]); Follow Up 05/21/2024 10:15 AM CDT Orders Only [facility] [address] [place] [address] Lab 05/21/2024 Travel 05/20/2024 3:45 PM CDT Telemedicine [address] [address] Jeanie Penn MD Telehealth (patient is in [place]); Follow Up 05/18/2024 Telephone [facility] [address] [place] [address] Mattie Leblanc MD Lab (tuberculosis) 05/06/2024 2:40 PM OPEN SOURCE DEVELOPER Office Visit [facility] [address] [place] [address] Zoran Underwood MD Musculoskeletal Problem (Consult back pain per primary physician Dr. 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 file Not on file Not [...] (145 lb 9.6 oz) 02/21/2024 10:34 AM OPEN SOURCE DEVELOPER Height 168.9 cm (5' 6.5) 09/07/2020 2:45 PM CDT Body Mass Index 23.15 09/07/2020 2:45 PM CDT Plan of Treatment Upcoming Encounters Date Type Department Care Team (Late st Contact Info) Description 07/07/2024 7:40 AM CDT Office Visit [facility] [address] [place] [address] Zoran Underwood MD [address] [place] [address] 07/10/2024 8:15 AM CDT Office Visit [facility] [address] [place] [address] Mattie Leblanc MD [address] [place] [address] 07/10/2024 2:00 PM CDT Office Visit [facility] [address] [place] [address] Iris Martinez, CNM [address] [facility] [address] [facility] [address] [place] [address] 08/28/2024 8:40 AM CDT Office Visit [facility] [address] [place] [address] Zoran Underwood MD [address] [place] [address] Health Maintenance Due Date Last Done Comments [...] 3:45 PM CDT Possible exposure to STD POST DOC FELLOWSHIP THIN PREP PAP SCREEN IMAGED Routine 09/07/2020 3:25 PM CDT Pap smear for cervical cancer screening from Last 3 Months or Most Recently Relevant to Health Maintenance Results * QUANTIFERON??-TB GOLD PLUS 1 TUBE (QUEST) (05/21/2024 10:15 AM CDT) QUANTIFERON(R)-T B GOLD PLUS, 1 TUBE NEGATIVE NEGATIVE [employer] [employer] [place] Comment: Negative test result. M. tuberculosis complex infection unlikely. NIL 0.01 IU/mL [facility] MITOGEN-NIL 7.15 IU/mL [employer] TB1-NIL 0.01 IU/mL [facility] TB2-NIL 0.01 IU/mL [employer] [employer] Comment: The Nil tube value reflects the [...] T-lymphocytes. For additional information, please refer to https://education.[employer].IntelliBatt/faq/CEI940 (This link is being provided for informational/ educational purposes only.) Blood BLOOD SPECIMEN / Unknown 05/21/2024 10:15 AM CDT 05/21/2024 10:19 AM CDT us Mattie Leblanc MD SEND OUTS Final Resul t [facility] [address] [place] [address], [facility] [address] [place] [address] * ANTI HIV 1/2 (09/07/2020 3:45 PM CDT) HIV-1/HIV-2 ANTIBODY Non-Reacti ve Non-Reacti ve 09/08/2020 5:41 PM CDT [facility] Comment:HIV-1 p24 and HIV-1/ HIV-2 Ab not detected. Blood BLOOD SPECIMEN / Unknown Venipuncture / Unknown 09/07/2020 3:45 PM CDT 09/07/2020 3:48 PM CDT Doc [facility] SEND OUTS Final Resul t [facility] [address] [place] [address], [place] * POST DOC FELLOWSHIP THIN PREP PAP SCREEN IMAGED (09/07/2020 3:25 PM CDT) Case Report Gynecologic Cytology Report Case: [id number] Authorizing Provider: Doc Mitchell PA Collected: 09/07/2020 1525 Ordering Location: [facility] Received: 09/07/2020 1555 Clinic First Screen: Fay Cruz Specimen: POST DOC FELLOWSHIP ThinPrep Vial Screening, Cervical 09/16/2020 6:59 PM CDT [facility] INTERPRETATION/ RESULT NEGATIVE FOR INTRAEPITHELIAL LESION OR MALIGNANCY (NIL) (none) 09/16/2020 6:59 PM CDT [facility] at 1859 CDT ORGANISM(S) Shift in laem suggestive of bacterial vaginosis 09/16/2020 6:59 PM CDT [facility] SPECIMEN ADEQUACY Satisfactory for evaluation No endocervical component seen 09/16/2020 6:59 PM CDT [facility] HPV REQUEST HPV if ASCUS 09/16/2020 6:59 PM CDT [facility] Date of LMP 08/20/20 09/16/2020 6:59 PM CDT [facility] Last Pap Date 201909/16/2020 6:59 PM CDT [facility] Last Pap Result First Pap/Unknown 6:59 PM CDT [facility] Abnormal Pap or [place] Bx in last 5 years No 09/16/2020 6:59 PM CDT [facility] Menstrual Status Irregular Periods 09/16/2020 6:59 PM CDT [facility] [place] Bx Done Today No 09/16/2020 6:59 PM CDT [facility] Additional Information None given 09/16/2020 6:59 PM CDT [facility] Comment: Cytology is screened at [facility] - [address], [place] [address] and [facility] - [address] [facility] [place] [address] and [facility] - [address] [place] [address] Interpreted at [facility] - [address], [place] [address] Automated Review Successful 09/16/2020 6:59 PM CDT [facility] Comment:Specimen processed s uccessfully by automated news specialist device, ThinPrep Imaging System, [employer] Note The pap test is a [...] and malignant lesions. 09/16/2020 6:59 PM CDT [facility] Other (Cervical) Non-Blood / Unknown 09/07/2020 3:25 PM CDT 09/07/2020 3:55 PM CDT us Doc [facility] PATHOLOGY/CYTOLOGY Final Re sult [facility] [address] [place] [address], [place] from Last 3 Months or Most Recently Relevant to Health Maintenance Insurance [employer] [facility] Care Teams Lab Assistant Relationship Specialty Start Date End Date Matt[place] [address] [address] [place] [address] PCP - General Family Practice 02/21/24
--- OUTSIDE RECORDS SUMMARY | 2024-07-02 20:43 | XMS_ITS | Encounter Summary ---
Author Organization [facility] Address [address] [place] [address]. 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
== END 2024-07-02 20:53 | disposition home or self-care (01) ==
LOC: ED 20:40
PROVIDERS: Emergency Provider Emergency Medicine Emergency Medical Services; PCP Family Medicine
DX: M54.16 Radiculopathy, lumbar region (principal); V43.52XA Car driver injured in collision with other type car in traffic accident, initial encounter
CPT/HCPCS: 96374; 96375; 99283; 99284; J1171; J2919

== ENCOUNTER 2024-07-07 06:44 | Outpatient (CLI) | payer BC, SELFPAY | END 2024-07-07 06:45 | disposition home or self-care (01) | PROVIDERS: PCP Family Medicine; Visit Provider Family Medicine | DX: M54.16 Radiculopathy, lumbar region (principal); M51.26 Other intervertebral disc displacement, lumbar region | CPT/HCPCS: 62323; J0702; Q9966 ==